=== PATIENT | male | born 1980 | race African-American/Black ===

== ENCOUNTER 2019-11-27 07:51 | Emergency (ER) | payer SELFPAY ==
[~2019-11-27] VITALS: Ht 177.8 cm; Wt 54.5 kg
[2019-11-27 08:14] LABS: BASO % 0.2 % (0.0-2.0); EOS # 6.6 (0.0-0.7); EOS % 51.2 % (0-4.0); GRAN # 4.6 (1.4-6.5); GRAN % 35.4 % (42.2-75.2); HEMATOCRIT 44.9 % (42.0-52.0); LYMPH # 1.3 (1.2-3.4); LYMPH % 9.8 % (20.0-51.0); MEAN CELL VOLUME 86 fl (80.0-100.0); MEAN CORPUSCULAR HEMOGLOBIN 29 pg (27.0-31.0); MEAN CORPUSCULAR HGB CONC 33 g/dl (33.0-37.0); MEAN PLATELET VOLUME 9.2 fl (7.4-10.4); MONO # 0.4 (0.1-0.6); MONO % 2.9 % (1.7-9.3); PLATELET COUNT 191 K/mm3 (130-400); RED BLOOD COUNT 5.23 M/mm3 (4.20-5.60); REDCELL DISTRIBUTION WIDTH-CV 13.2 % (11.5-14.5)
[2019-11-27 08:19] LABS: INR 1.1 (0.8-3.0); PROTHROMBIN TIME 12.2 SECONDS (9.7-12.8)
[2019-11-27 08:21] LABS: PARTIAL THROMBOPLASTIN TIME 35.3 SECONDS (26.0-37.0)
[2019-11-27 08:25] LABS: ALBUMIN 3.6 gm/dL (3.5-5.0); BILIRUBIN,TOTAL 0.6 mg/dL (0.0-1.0); CALCIUM 8.9 mg/dL (8.4-10.2); CREATININE, serum 0.84 (0.66-1.25); POTASSIUM 4.5 mmol/L (3.4-5.0); TOTAL PROTEIN 7.7 gm/dL (6.4-8.2)
[2019-11-27 11:50] LABS: COLLECTION METHOD CLEAN CATCH
[2019-11-27 12:02] LABS: MUCOUS Present /lpf; PH 5 (5-8); SQUAMOUS EPITHELIAL 0-2 /hpf; URINE APPEARANCE Clear; URINE BACTERIA None Seen /hpf; URINE BILIRUBIN Negative (NEGATIVE); URINE BLOOD Negative (NEGATIVE); URINE COLOR Yellow; URINE GLUCOSE Negative (NEGATIVE); URINE KETONE Trace (NEGATIVE); URINE LEUKOCYTE ESTERASE Negative (NEGATIVE); URINE NITRATE Negative (NEGATIVE); URINE PROTEIN(semi-quant) 1+ (NEGATIVE); URINE RBC 0-2 /hpf; URINE UROBILINOGEN Negative (NEGATIVE)
[2019-11-27 12:26] LABS: TRICYCLIC ANTIDEPRESS URINE NEGATIVE
[2019-11-27 13:30] VITALS: BP 87/63; PULSE 83; TEMP 99
== END 2019-11-27 13:30 | disposition short-term general hospital (02) ==
LOC: COL.ER 07:51
PROVIDERS: Emergency Medicine
DX: I63.50 Cerebral infarction due to unspecified occlusion or stenosis of unspecified cerebral artery (principal)
CPT/HCPCS: A9585; J0133; J7030; J7050; Q9967

== ENCOUNTER 2021-08-25 10:10 | Inpatient (IN) | payer BC ==
[~2021-08-25] VITALS: Ht 177.8 cm; Wt 53.6 kg
[2021-08-25] VITALS (13 sets, daily range): BP systolic 95–112; BP diastolic 54–85; PULSE 62–86; TEMP 99
[~2021-08-25 10:10] MED LIST: AMOXICILLIN 8751 TAB PO; PREDNISONE20 MG PO
[2021-08-25 11:08] LABS: HEMATOCRIT 42.7 % (42.0-52.0); HEMOGLOBIN 14.5 g/dl (13.5-18.0); MEAN CELL VOLUME 85 fl (80.0-100.0); MEAN CORPUSCULAR HEMOGLOBIN 29 pg (27-31); MEAN CORPUSCULAR HGB CONC 34 g/dl (33.0-37.0); PLATELET COUNT 140 K/mm3 (130-400); RED BLOOD COUNT 5.03 M/mm3 (4.20-5.60); REDCELL DISTRIBUTION WIDTH-CV 12.9 % (11.5-14.5)
[2021-08-25 11:19] LABS: INR 1.2 (0.8-3.0); PROTHROMBIN TIME 12.8 SECONDS (9.7-12.8)
[2021-08-25 11:20] LABS: ALBUMIN 3.2 gm/dL (3.5-5.0); BILIRUBIN,TOTAL 0.7 mg/dL (0.2-1.2); CALCIUM 8.3 mg/dL (8.4-10.2); CREATININE, serum 0.86 mg/dL (0.72-1.25); POTASSIUM 4.1 mmol/L (3.5-4.5); TOTAL PROTEIN 6.2 gm/dL (6.2-8.1)
[2021-08-25 11:30] LABS: TROPONIN-I 3.939 ng/mL (0.00-0.033)
[2021-08-25 11:54] LABS: EOSINOPHIL 54 % (0-4); LYMPHOCYTE 10 % (20.0-51.0); NEUTROPHILS 35 % (42.0-75.2)
[2021-08-25 11:57] LABS: PLATELET ESTIMATE NORMAL (NORMAL)
--- NOTE | 2021-08-25 13:03 | NUR ---
PATIENT ALERT AND ORIENTED, REPORTS 10 CHEST PAIN-PHYSICIAN AWARE. CONSENT VERIFIED. PLEASE SEE MERGE FOR DETAILS OF PROCEDURE WELL MEDICATION ADMINISTRATION AND HEMODYNAMIC MONITORING.
--- NOTE | 2021-08-25 14:08 | NUR ---
PT. IN ROOM 324 POST OP FROM HEART CATH. ASSESSMENT COMPLETE. A&O X4 AND NOT DROWSY. TR BAND IN PLACE TO RIGHT WRIST WITH 11ML OF AIR IN BAND. O2 SAT ON THAT HAND READING 100% PT. HELPED TO VOID USING A URINAL IN BED. WATER PROVIDED. CALL LIGHT WITHIN REACH. NO FURTHER NEEDS AT THIS TIME.
--- NOTE | 2021-08-25 14:45 | NUR ---
NURSING ENTERED ROOM TO CHECK ON POST HEART CATH PATIENT WHEN HE REPORTED CHEST PAIN THAT HURTS BAD WHEN HE CAME IN TO THE ER. NOTIFIED HOSPITALIST, SEE ORDERS. PAGED CARDIOLOGY. CALLED FOR STAT EKG.
--- NOTE | 2021-08-25 15:00 | NUR ---
PATIENT REQUESTING SOMETHING FOR PAIN, RN GAVE PRN IV MORPHINE PER ORDERS. CT CALL AND WILL BE COMING UP TO GET PATIENT SOON. EKG OBTAINED, SEE RESULTS.
--- NOTE | 2021-08-25 15:06 | NUR ---
PT. OFF FLOOR TO CT SCAN.
--- NOTE | 2021-08-25 15:29 | NUR ---
CALLED HOSPITALIST & WITH PATIENT'S C/O INCREASED CHEST PAIN POST HEART CATH. PATIENT HAS EXTENSIVE CARDIAC HX INCLUDING DAGO'S ENDOCARDITIS. PATIENT ALREADY GIVEN IV MORPHINE WHICH HE REPORTS DIDN'T REALLY HELP. SEE NEW ORDERS FROM .
--- NOTE | 2021-08-25 15:35 | NUR ---
ATTEMPTED TO RELEASE 3CC OF AIR FROM TR BAND, 2 HOURS POST HEART CATH PER ORDERS. PATIENT INSTANTLY STARTED BLEEDING FROM RADIAL SITE, 3CC OF AIR PLACED BACK INTO TR BAND.
--- NOTE | 2021-08-25 16:00 | NUR ---
CALLED HOSPITALIST & A COUPLE MORE TIMES WITH LAB/EKG RESULTS AND PATIENT'S C/O CHEST PAIN. NO NEW ORDERS AT THIS TIME. AT BEDSIDE.
--- NOTE | 2021-08-25 16:30 | NUR ---
ATTEMPTED TO RELEASE 3CC OF AIR FROM RIGHT TR BAND AGAIN, NOTED BLEEDING, PUT 3CC OF AIR BACK IN. WILL ATTEMPT AGAIN IN 30 MINUTES.
--- NOTE | 2021-08-25 17:31 | NUR ---
3 ML OF AIR WAS LET OUT OF BAND. NO BLEEDING NOTED. PT. TOLERATED PROCEDURE WELL.
--- NOTE | 2021-08-25 18:05 | NUR ---
REMOVED ANOTHER 3CC FROM RIGHT TR BAND, NO BLEEDING. WILL MONITOR. PATIENT STILL C/O CHEST PAIN, CALLED HOSPITALIST, SEE NEW ORDERS. PATIENT LOOKING AT MENU
[2021-08-26] VITALS: BP 88/63; PULSE 59; TEMP 98.2
[2021-08-26 00:26] VITALS: BP 88/63; PULSE 59; TEMP 98.2
[2021-08-26 04:00] VITALS: BP 87/61; PULSE 71; TEMP 98.4
[2021-08-26 04:15] VITALS: BP 87/61; PULSE 71; TEMP 98.4
--- NOTE | 2021-08-26 04:28 | NUR ---
Patient has had an uneventful evening, however,the patient did have an episode where he felt that he needed to leave AMA. JOSH Hernandez was contacted and discussed with the patient the consequences of leaving AMA. Patient agreed with the PA and stated that he would stay until the morning and after the ECHO was completed. Patient stated that he was frustrated because all of his tests were coming back negative and felt that he did not need to be here. Patient has had minimal complaints of pain. Has ambulated without difficulty and taking oral intake without difficulty. All air has been released from radial band post-cath withouth complications. Patient has no other complaints at this time. Call light within reach.
--- NOTE | 2021-08-26 06:50 | NUR ---
up and about in room independently, states he just needs to go on home now, spoke with him and he has agreed to stay until after Dr comes in to see him, IV fluids discontinued, bedside shift report received from ARLIN Dinero
--- NOTE | 2021-08-26 07:40 | NUR ---
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
[2021-08-26 08:15] VITALS: BP 110/74; PULSE 72; TEMP 97.4
--- NOTE | 2021-08-26 08:15 | NUR ---
again asking about going home, reminded him it would be after physician sees him this am, verbalizes understanding, full assessment completed, see interventions for further info, continues to c/o pain in left upper chest, breakfast ordered
[2021-08-26 08:28] VITALS: BP 110/74; PULSE 72; TEMP 97.4
--- NOTE | 2021-08-26 09:20 | NUR ---
Social Work student met with patient to discuss discharge planning. Patient lives alone in [place]. Patient sees Dr. Torrie Rooney for primary care, and he receives his medications from [facility]. Patient states that he does not utilize any durable medical equiptment, and he states that he is independent with his ADL's. Patient does not have a DPOA-HC on file, so SW asked patient if he had ever filled one out prior to his current stay in the hospital. Patient said no. SW then attempted to establish next of kin with the patient. Patient's family lives in [facility]. Patient is not and has no kids. Patient has two brothers and one sister, Anai(ph#[phone]). Patient's mother is still alive as she lives in [facility] as well. SW asked the patient if he had any friends around the area whose number he would like to add to notify, and patient stated, "I have friends, but I do not know their numbers." SW asked the patient that if he remembers a number to someone to write it down and let her know, and patient agreed that he would do that. *Discharge plan: Home*
[2021-08-26] MEDS ORDERED: INDOCIN 25MG CA25 MG PO (09:37)
[2021-08-26] MEDS ORDERED: PROTONIX 40MG T40 MG PO (09:37)
[2021-08-26] MEDS ORDERED: COLCRYS0.6 MG PO (09:42)
--- NOTE | 2021-08-26 09:42 | NUR ---
Dr Ardon and care team in to see patient
--- NOTE | 2021-08-26 10:40 | NUR ---
appears to be dozing,
--- NOTE | 2021-08-26 11:15 | NUR ---
discharge instructions given to patient, reviewed new meds and how often he is to take them and when to start each one, verbalizes understanding and written copy provided,
--- NOTE | 2021-08-26 11:30 | NUR ---
discharged per WC
--- NOTE | 2021-08-26 11:41 | NUR ---
First visit from the registered nurse midwife. No needs right now.
== END 2021-08-26 11:30 | disposition home or self-care (01) | DRG 287 ==
LOC: COL.ER 10:10 → SDCO 13:00 → SURG 13:00 → SDCO 14:00 → SURG 14:01
PROVIDERS: Personal Emergency Response Attendant; ADMIT Student in an Organized Health Care Education/Training Program
PROC: 4A023N7 Measurement of Cardiac Sampling and Pressure, Left Heart, Percutaneous Approach (ICD-10-PCS; principal; 2021-08-25)
PROC: B2111ZZ Fluoroscopy of Multiple Coronary Arteries using Low Osmolar Contrast (ICD-10-PCS; 2021-08-25)
DX: R07.9 Chest pain, unspecified (principal); I42.9 Cardiomyopathy, unspecified; I34.0 Nonrheumatic mitral (valve) insufficiency; K21.00 Gastro-esophageal reflux disease with esophagitis, without bleeding; D72.10 Eosinophilia, unspecified; Z86.73 Personal history of transient ischemic attack (TIA), and cerebral infarction without residual deficits
CPT/HCPCS: OP; 99222-AI; 99239; C1769; C9113; J1644; J2250; J2270; J3010; J7030; Q9967

== ENCOUNTER 2021-08-27 14:42 | Emergency (ER) | payer BC ==
[~2021-08-27] VITALS: Ht 177.8 cm; Wt 61.4 kg
[~2021-08-27 14:42] MED LIST changes: +COLCRYS0.6 MG PO; +INDOCIN 25MG CA25 MG PO; +PROTONIX 40MG T40 MG PO
[2021-08-27 15:21] LABS: HEMATOCRIT 39.5 % (42.0-52.0); HEMOGLOBIN 13.6 g/dl (13.5-18.0); MEAN CELL VOLUME 85 fl (80.0-100.0); MEAN CORPUSCULAR HEMOGLOBIN 29 pg (27-31); MEAN CORPUSCULAR HGB CONC 34 g/dl (33.0-37.0); MEAN PLATELET VOLUME 10.2 fl (7.4-10.4); PLATELET COUNT 89 K/mm3 (130-400); RED BLOOD COUNT 4.64 M/mm3 (4.20-5.60); REDCELL DISTRIBUTION WIDTH-CV 13.1 % (11.5-14.5)
[2021-08-27 15:32] LABS: INR 1.2 (0.8-3.0); PROTHROMBIN TIME 14.1 SECONDS (9.7-12.8)
[2021-08-27 15:34] LABS: ALBUMIN 2.8 gm/dL (3.5-5.0); BILIRUBIN,TOTAL 0.6 mg/dL (0.2-1.2); C-REACTIVE PROTEIN 14.86 mg/dL (0.00-0.50); CALCIUM 7.9 mg/dL (8.4-10.2); CREATININE, serum 0.98 mg/dL (0.72-1.25); POTASSIUM 4.3 mmol/L (3.5-4.5); TOTAL PROTEIN 5.8 gm/dL (6.2-8.1)
[2021-08-27 15:35] LABS: PARTIAL THROMBOPLASTIN TIME 33.2 SECONDS (26.0-37.0)
[2021-08-27 15:41] LABS: TROPONIN-I 11.972 ng/mL (0.00-0.033)
[2021-08-27 16:10] LABS: EOSINOPHIL 30 % (0-4); LYMPHOCYTE 9 % (20.0-51.0); NEUTROPHILS 58 % (42.0-75.2)
[2021-08-27 16:11] LABS: PLATELET ESTIMATE DECREASED (NORMAL)
[2021-08-27 20:06] VITALS: BP 99/68; PULSE 89; TEMP 99.6
== END 2021-08-27 20:19 | disposition short-term general hospital (02) ==
LOC: COL.ER 14:42
PROVIDERS: Family Medicine
DX: I51.4 Myocarditis, unspecified (principal); R55 Syncope and collapse

== ENCOUNTER 2023-08-26 15:03 | Emergency (ER) | payer OTHER ==
[~2023-08-26] VITALS: Ht 180.3 cm; Wt 72.7 kg
[2023-08-26 15:19] VITALS: TEMP 98.6
[2023-08-26] MEDS ORDERED: XARELTO20 MG PO (15:29)
[2023-08-26 16:45] LABS: HEMATOCRIT 41.4 % (42.0-52.0); HEMOGLOBIN 13.7 g/dl (13.5-18.0); MEAN CELL VOLUME 91 fl (80.0-100.0); MEAN CORPUSCULAR HEMOGLOBIN 30 pg (27-31); MEAN CORPUSCULAR HGB CONC 33 g/dl (33.0-37.0); MEAN PLATELET VOLUME 9.7 fl (7.4-10.4); PLATELET COUNT 308 K/mm3 (130-400); RED BLOOD COUNT 4.53 M/mm3 (4.20-5.60); REDCELL DISTRIBUTION WIDTH-CV 16.3 % (11.5-14.5)
[2023-08-26 17:00] LABS: ALBUMIN 2.6 g/dL (3.5-5.0); BILIRUBIN,TOTAL 0.4 mg/dL (0.2-1.2); CALCIUM 8.7 mg/dL (8.4-10.2); CREATININE, serum 0.94 mg/dL (0.72-1.25); POTASSIUM 4.1 mEq/L (3.5-4.5); TOTAL PROTEIN 6.9 g/dl (6.2-8.1)
[2023-08-26 17:11] LABS: TROPONIN-I 2.175 ng/mL (0.00-0.033)
[2023-08-26 17:29] LABS: EOSINOPHIL 18 % (0-4); LYMPHOCYTE 24 % (20.0-51.0); NEUTROPHILS 54 % (42.0-75.2); PLATELET ESTIMATE NORMAL (NORMAL)
[2023-08-26 19:20] VITALS: BP 129/90; PULSE 66
== END 2023-08-26 19:31 | disposition left against medical advice (07) ==
LOC: COL.ER 15:03
PROVIDERS: Emergency Medicine
DX: I50.9 Heart failure, unspecified (principal); I44.0 Atrioventricular block, first degree; I31.39 Other pericardial effusion (noninflammatory)

== ENCOUNTER 2023-08-27 13:59 | Emergency (ER) | payer OTHER ==
[~2023-08-27] VITALS: Ht 180.3 cm; Wt 72.7 kg
[~2023-08-27 13:59] MED LIST changes: +XARELTO20 MG PO
[2023-08-27 14:01] VITALS: TEMP 98.8
[2023-08-27 15:38] LABS: HEMATOCRIT 39.4 % (42.0-52.0); HEMOGLOBIN 13.3 g/dl (13.5-18.0); MEAN CELL VOLUME 90 fl (80.0-100.0); MEAN CORPUSCULAR HEMOGLOBIN 30 pg (27-31); MEAN CORPUSCULAR HGB CONC 34 g/dl (33.0-37.0); MEAN PLATELET VOLUME 9.8 fl (7.4-10.4); PLATELET COUNT 278 K/mm3 (130-400); RED BLOOD COUNT 4.37 M/mm3 (4.20-5.60)
[2023-08-27 15:49] LABS: ALBUMIN 2.4 g/dL (3.5-5.0); BILIRUBIN,TOTAL 0.6 mg/dL (0.2-1.2); CALCIUM 8.6 mg/dL (8.4-10.2); CREATININE, serum 0.97 mg/dL (0.72-1.25); TOTAL PROTEIN 6.5 g/dl (6.2-8.1)
[2023-08-27 15:56] LABS: TROPONIN-I 1.866 ng/mL (0.00-0.033)
[2023-08-27 16:42] LABS: BAND 2 % (0-10); EOSINOPHIL 27 % (0-4); LYMPHOCYTE 16 % (20.0-51.0); NEUTROPHILS 50 % (42.0-75.2); PLATELET ESTIMATE NORMAL (NORMAL)
[2023-08-27 22:59] VITALS: BP 116/78; PULSE 80
== END 2023-08-27 23:00 | disposition short-term general hospital (02) ==
LOC: COL.ER 13:59
PROVIDERS: Emergency Medicine
DX: I50.9 Heart failure, unspecified (principal)